=== PATIENT | male | born 1995 | race Caucasian/White ===

== ENCOUNTER 2016-12-24 13:41 | Inpatient (IN) | payer OTHER ==
[~2016-12-24] VITALS: Ht 182.9 cm; Wt 93.6 kg
[2016-12-24] MEDS ORDERED: HYDROmorphone INJ 1 MG/ML SYR IV STA (14:57)
[2016-12-24] MEDS ORDERED: PENI-82 PO (14:57)
[2016-12-24] MEDS ORDERED: KETOROLAC TROMETHAMINE 30 MG/ML VIAL IV STA (14:57)
[2016-12-24] MEDS ORDERED: AMPICILLIN/SULBACTAM SOD INJ 3,000 MG in SODIUM CHLORIDE 0.9% 100ML 100 ML IV STA (14:57)
[2016-12-24] MEDS ORDERED: HYDR-5688 PO (14:57)
[2016-12-24] MEDS ORDERED: METR-163 PO (14:57)
[2016-12-24] MEDS ORDERED: MTR600X PO (14:57)
[2016-12-24] MEDS ORDERED: OPTIRAY 320 IV PRN (15:15)
--- NOTE | 2016-12-24 15:22 | EMERGENCY ROOM VISIT NOTE ---
History Report prepared by Martínez: Asmita Caruso Under the Supervision of: Dr. Edvin Maurice M.D. First contact with patient: 14:52 Chief Complaint: FACIAL PAIN/INJURY Stated Complaint: MASS ON R SIDE OF FACE,INFECTION,SWELLING,FEVER History of Present Illness The patient is a 21 year old male who presents to the Emergency Room with complaints of a worsening right lower jaw infection for the past 2 days. The patient saw a dentist, Dr. Bauman, yesterday and had 2 teeth pulled. He was prescribed Flagyl, Penicillin, and Percocet. He is also taking ibuprofen. He states that today he woke up with worsening swelling of his jaw into his neck. He reports pain that radiates from his jaw into his neck. The patient rates his pain as a 5/10 in severity. Source of History: patient Onset: 2 days ago Position: jaw Symptom Intensity: 5/10 Quality: other (radiating) Timing: worsening Modifying Factors (Relieving): ibuprofen, narcotics Associated Symptoms: + neck pain Review of Systems See HPI for pertinent positives & negatives. A total of 10 systems reviewed and were otherwise negative. Past Medical & Surgical Medical Problems: (1) No significant past medical history Surgical Problems: (1) No significant past surgical history Family History Diabetes mellitus Heart disease Hypertension Social History Smoking Status: Never Smoker Smokeless Tobacco Use: No Alcohol Use: occasionally Marital Status: single Housing Status: lives with roommate Occupation Status: [employer] Current/Historical Medications Scheduled Metronidazole (Flagyl), 500 MG PO Q6 Penicillin V Potassium (Veetids), 1,000 MG PO Q6 Scheduled PRN Hydrocodone/Acetaminophen 5MG/325MG ([place] 5MG/325MG), 1 TABLET PO Q6 PRN for Pain Ibuprofen (Ibuprofen), 600 MG PO Q6 PRN for Pain Allergies Coded Allergies: Cefazolin (Verified Allergy, Unknown, unk, 01/26/16) Physical Exam Vital Signs Date Time Temp Pulse Resp B/P Pulse Ox O2 Delivery O2 Flow Rate FiO2 12/24/16 16:17 75 18 141/72 98 Room Air 12/24/16 15:33 79 12/24/16 13:56 37.0 81 18 151/91 97 Room Air Physical Exam GENERAL: Patient is a healthy-appearing well-nourished 21 year old male. HEAD: Normocephalic atraumatic EYES: Ocular movements intact pupils equal and react to light OROPHARYNX mucous membranes are moist no exudates present no erythema or edema present. The right angle of the jaw is grossly swollen, able to swallow his own saliva, 3 back right molars are tender, no evidence of abscess. NECK: Supple no nuchal rigidity, no evidence of Paolo's angina. CHEST: Good equal expansion LUNGS: Clear and equal to auscultation CARDIAC: Normal S1 and S2 ABDOMEN: Soft nontender no guarding BACK: No CVA tenderness EXTREMITIES: No pain upon palpation normal muscle strength in all groups no clubbing cyanosis or edema NEURO: Patient is following commands is answering questions appropriately. Alert and oriented x3 Cranial Nerves 2-12 grossly intact Medical Decision & Procedures ER Provider Diagnostic Interpretation: Radiology results as stated below per my review and radiologist interpretation: CT SCAN OF THE FACIAL BONES WITH IV CONTRAST CLINICAL HISTORY: Facial swelling. COMPARISON STUDY: No priors. TECHNIQUE: High-resolution CT scan of the facial bones is performed following the IV administration of 116 cc of Optiray 320. Images are reviewed in the axial, sagittal, and coronal planes. IV contrast was administered without complication. CT DOSE: 710.79 mGy.cm FINDINGS: The skeletal structures are well mineralized. There is no evidence of facial bone fracture. The bony orbits are intact and the orbital contents are within normal limits. The zygomatic arches, nasal bones, and pterygoid plates are preserved. The maxilla and mandible are intact. There are no layering blood products within the paranasal sinuses. There is subtotal opacification of the sphenoid sinuses. Trace mucosal thickening is noted in the maxillary antra. The remaining paranasal sinuses and mastoid air cells are clear. The visualized calvarium and upper cervical spine are maintained. There is a 1.4 cm lobulated fat density lesion at the skull base and the posterior fossa on the left. This is seen on axial image #426. Partially imaged brain parenchyma is otherwise within normal limits. There is a large periapical lucency involving a right mandibular premolar. There is associated cortical breakthrough with significant overlying inflammatory stranding of the superficial and deep soft tissues of the right face. This is consistent with cellulitis. There is no definite organized fluid collection seen to indicate abscess. A large periapical lucency is also identified involving the left most posterior mandibular molar. No maxillary periapical lucencies are identified. Prominent right cervical lymph nodes are likely on a reactive basis. IMPRESSION: 1. There is no evidence of facial bone fracture. 2. There is a large periapical lucency with associated cortical breakthrough identified involving a right mandibular premolar. There is induration of the overlying superficial and deep soft tissues consistent with cellulitis. No abscess is clearly identified. 3. An additional large periapical lucency is seen involving the left most posterior mandibular molar. Follow-up with dentistry is recommended. 4. There is a 1.4 cm lesion in the left posterior fossa which contains macroscopic fat. This could represent a dermoid cyst or a lipoma. Nonemergent follow-up with neurology is recommended. 5. Sphenoid sinus disease as above. Electronically signed by: Raffaele Paige M.D. 12/24/2016 3:58 PM Dictated Date/Time: 12/24/2016 3:48 PM Laboratory Results 12/24/16 15:15 Red Blood Count 5.06, Mean Corpuscular Volume 83.4, Mean Corpuscular Hemoglobin 29.8, Mean Corpuscular Hemoglobin Concent 35.8, Mean Platelet Volume 9.6, Neutrophils (%) (Auto) 74.5, Lymphocytes (%) (Auto) 12.3, Monocytes (%) (Auto) 11.8, Eosinophils (%) (Auto) 0.8, Basophils (%) (Auto) 0.3, Neutrophils # (Auto ) 5.38, Lymphocytes # (Auto) 0.89, Monocytes # (Auto) 0.85, Eosinophils # (Auto ) 0.06, Basophils # (Auto) 0.02 12/24/16 15:15 Test 12/24/16 15:15 12/24/16 15:24 White Blood Count 7.22 K/uL (4.8-10.8) Red Blood Count 5.06 M/uL (4.7-6.1) Hemoglobin 15.1 g/dL (14.0-18.0) Hematocrit 42.2 % (42-52) Mean Corpuscular Volume 83.4 fL (80-100) Mean Corpuscular Hemoglobin 29.8 pg (25-34) Mean Corpuscular Hemoglobin Concent 35.8 g/dl (32-36) Platelet Count 175 K/uL (130-400) Mean Platelet Volume 9.6 fL (7.4-10.4) Neutrophils (%) (Auto) 74.5 % Lymphocytes (%) (Auto) 12.3 % Monocytes (%) (Auto) 11.8 % Eosinophils (%) (Auto) 0.8 % Basophils (%) (Auto) 0.3 % Neutrophils # (Auto) 5.38 K/uL (1.4-6.5) Lymphocytes # (Auto) 0.89 K/uL (1.2-3.4) Monocytes # (Auto) 0.85 K/uL (0.11-0.59) Eosinophils # (Auto) 0.06 K/uL (0-0.5) Basophils # (Auto) 0.02 K/uL (0-0.2) RDW Standard Deviation 38.1 fL (36.4-46.3) RDW Coefficient of Variation 12.6 % (11.5-14.5) Immature Granulocyte % (Auto) 0.3 % Immature Granulocyte # (Auto) 0.02 K/uL (0.00-0.02) Est Creatinine Clear Calc Drug Dose 126.2 ml/min Estimated GFR () 110.6 Estimated GFR (Non- 95.5 BUN/Creatinine Ratio 10.0 (10-20) Calcium Level 9.6 mg/dl (8.5-10.1) Total Bilirubin 0.5 mg/dl (0.2-1) Direct Bilirubin 0.2 mg/dl (0-0.2) Aspartate Amino Transf (AST/SGOT) 15 U/L (15-37) Alanine Aminotransferase (ALT/SGPT) 34 U/L (12-78) Alkaline Phosphatase 69 U/L (45-117) Total Protein 8.3 gm/dl (6.4-8.2) Albumin 4.1 gm/dl (3.4-5.0) Lipase 137 U/L (73-393) Bedside Hemoglobin 14.6 g/dl (14.0-18.0) Bedside Hematocrit 43 % (42-52) Bedside Sodium 139 mEq/L (135-144) Bedside Potassium 4.2 mEq/L (3.3-5.0) Bedside Chloride 100 mEq/L (101-112) Bedside Total CO2 25 mEq/l (24-31) Anion Gap 19.0 mmol/L (16-25) Bedside Blood Urea Nitrogen 11 mg/dl (7-18) Bedside Creatinine 1.0 mg/dl (0.6-1.3) Bedside Glucose (other) 86 mg/dl (70-99) Bedside Ionized Calcium (Tato) 1.22 mmol/l (1.12-1.32) Labs reviewed by ED physician. Medications Administered Medications (Trade) Dose Ordered Sig/Tasha Route Start Time Stop Time Status Last Admin Dose Admin Ketorolac Tromethamine (Toradol Inj) 30 mg NOW STAT IV 12/24/16 14:57 12/24/16 15:00 DC 12/24/16 15:29 30 MG Hydromorphone HCl 1 mg 1 mg NOW STAT IV 12/24/16 14:57 12/24/16 15:00 DC 12/24/16 15:28 1 MG Ampicillin Sodium/ Sulbactam Sodium/ Sodium Chloride (Unasyn Inj/Nss 100ml) 108 ml @ 200 mls/hr NOW STAT IV 12/24/16 14:57 12/24/16 15:29 DC 12/24/16 15:27 200 MLS/HR Metronidazole (Flagyl / Nss) 500 mg NOW STAT IV 12/24/16 16:21 12/24/16 16:22 DC 12/24/16 16:54 500 MG Dexamethasone Sodium Phosphate (Decadron Inj) 10 mg NOW ONCE IV 12/24/16 16:45 12/24/16 16:54 DC 12/24/16 17:01 10 MG ED Course 1452: Past medical records reviewed. The patient was evaluated in room B12B. A complete history and physical examination was performed. 1457: Ampicillin Sodium/Sulbactam Sodium 3000 mg/Sodium Chloride 108 ml @ 200 mls/hr IV, Dilaudid 1 mg IV, Toradol 30 mg IV 1611: At this time I discussed the treatment plan with the patient's dentist, Dr. Bauman. Her phone number is [phone]. 1614: I reassessed the patient at this time. He is feeling better and resting comfortably. I discussed the results and treatment plan with the patient. I answered all pertaining questions that he had. He expressed understanding and verbalized agreement. At this time I offered to call his parents, but he declined. 1621: Flagyl 500 mg IV 1632: I spoke with Dr. Bunch. We discussed the patients results and treatment plan. [facility]. Medical Decision Differential diagnosis: Etiologies such as cellulitis, abscess, MRSA infection, DVT, necrotizing fasciitis, dermatitis, drug eruption, as well as others were entertained. This is a 21-year-old male who presents emergency complaining of facial swelling. The patient recently had an abscess drained in his mouth by his dentist. He is placed on penicillin and Flagyl however his face is continue to swell. He Cozen the large amount of swelling, the patient was sent for a CAT scan of the face. This did not show any evidence of a drainable abscess. Because of the large amount of swelling I did discuss the case with both a dentist as well as the hospitalist service who agreed to admit the patient. Patient was given Toradol in the emergency department along with Unasyn and Flagyl. Repeat examination revealed improvement patient's symptoms. Patient was in agreement with the treatment plan. I offered to call this patient's parents however the patient declined. Consults Time Called: 1609 Consulting Physician: Dr. Bauman Returned Call: 1611 At this time I discussed the treatment plan with the patient's dentist, Dr. Bauman. Additional Consults: Time Called: 1629 Consulted Physician: Dr. Bunch Returned Call: 1632 Additional Comments: I spoke with Dr. Bunch. We discussed the patients results and treatment plan. The patient will be evaluated by the [facility] for further management. Impression Primary Impression: Facial cellulitis Scribe Attestation The scribe's documentation has been prepared under my direction and personally reviewed by me in its entirety. I confirm that the note above accurately reflects all work, treatment, procedures, and medical decision making performed by me. Departure Information Dispostion Being Evaluated By Hospitalist Referrals No Doctor, Assigned (PCP) Patient Instructions My [facility]
[2016-12-24 15:35] LABS: BASO % 0.3 %; BASO ABS # 0.02 K/uL (0-0.2); COMPLETE YES; EOS % 0.8 %; HEMATOCRIT 42.2 % (42-52); IG% 0.3 %; LYMPH % 12.3 %; LYMPH ABS # 0.89 K/uL (1.2-3.4); MEAN CELL VOLUME 83.4 fL (80-100); MEAN CORPUSCULAR HEMOGLOBIN 29.8 pg (25-34); MEAN CORPUSCULAR HGB CONC 35.8 g/dl (32-36); MEAN PLATELET VOLUME 9.6 fL (7.4-10.4); MONO % 11.8 %; NEUT % 74.5 %; PLATELET COUNT 175 K/uL (130-400); RED BLOOD COUNT 5.06 M/uL (4.7-6.1); WHITE BLOOD COUNT 7.22 K/uL (4.8-10.8)
[2016-12-24 15:40] LABS: ISTAT HEMOGLOBIN 14.6 g/dl (14.0-18.0); ISTAT IONIZED CALCIUM 1.22 mmol/l (1.12-1.32)
[2016-12-24 15:52] LABS: CALCIUM 9.6 mg/dl (8.5-10.1); CREATININE 1.1 mg/dl (0.60-1.40); POTASSIUM 4.3 mmol/L (3.5-5.1)
--- NOTE | 2016-12-24 16:00 | DIAGNOSTIC IMAGING REPORT ---
CT SCAN OF THE FACIAL BONES WITH IV CONTRAST CLINICAL HISTORY: Facial swelling. COMPARISON STUDY: No priors. TECHNIQUE: High-resolution CT scan of the facial bones is performed following the IV administration of 116 cc of Optiray 320. Images are reviewed in the axial, sagittal, and coronal planes. IV contrast was administered without complication. CT DOSE: 710.79 mGy.cm FINDINGS: The skeletal structures are well mineralized. There is no evidence of facial bone fracture. The bony orbits are intact and the orbital contents are within normal limits. The zygomatic arches, nasal bones, and pterygoid plates are preserved. The maxilla and mandible are intact. There are no layering blood products within the paranasal sinuses. There is subtotal opacification of the sphenoid sinuses. Trace mucosal thickening is noted in the maxillary antra. The remaining paranasal sinuses and mastoid air cells are clear. The visualized calvarium and upper cervical spine are maintained. There is a 1.4 cm lobulated fat density lesion at the skull base and the posterior fossa on the left. This is seen on axial image #426. Partially imaged brain parenchyma is otherwise within normal limits. There is a large periapical lucency involving a right mandibular premolar. There is associated cortical breakthrough with significant overlying inflammatory stranding of the superficial and deep soft tissues of the right face. This is consistent with cellulitis. There is no definite organized fluid collection seen to indicate abscess. A large periapical lucency is also identified involving the left most posterior mandibular molar. No maxillary periapical lucencies are identified. Prominent right cervical lymph nodes are likely on a reactive basis. IMPRESSION: 1. There is no evidence of facial bone fracture. 2. There is a large periapical lucency with associated cortical breakthrough identified involving a right mandibular premolar. There is induration of the overlying superficial and deep soft tissues consistent with cellulitis. No abscess is clearly identified. 3. An additional large periapical lucency is seen involving the left most posterior mandibular molar. Follow-up with dentistry is recommended. 4. There is a 1.4 cm lesion in the left posterior fossa which contains macroscopic fat. This could represent a dermoid cyst or a lipoma. Nonemergent follow-up with neurology is recommended. 5. Sphenoid sinus disease as above. Electronically signed by: Raffaele Paige M.D. 12/24/2016 3:58 PM Dictated Date/Time: 12/24/2016 3:48 PM
[2016-12-24] MEDS ORDERED: METRONIDAZOLE 500MG / 100ML NSS IV STA (16:21)
[2016-12-24] MEDS ORDERED: PERCOCET HOME PACK PO ONE (16:30)
[2016-12-24] MEDS ORDERED: [UNRECOGNIZED DRUG - OTHER] MT PRN (16:45)
[2016-12-24] MEDS ORDERED: DEXAMETHASONE SOD INJ 10 MG/ML VIAL IV ONE (16:45)
[2016-12-24] MEDS ORDERED: KETOROLAC TROMETHAMINE 30 MG/ML VIAL IV PRN (16:45)
[2016-12-24] MEDS ORDERED: ONDANSETRON INJ 2 MG/ML 2 ML VIAL IV PRN (16:45)
[2016-12-24 19:44] VITALS: BP 142/74; PULSE 80; TEMP 37; Ht 182.9 cm; Wt 93.6 kg
[2016-12-24] MEDS ORDERED: IV FLUIDS COMPLETED PRN (20:00)
[2016-12-24] MEDS: AMPICILLIN/SULBACTAM SOD INJ 3,000 MG in SODIUM CHLORIDE 0.9% 100ML 100 ML IV SCH (21:16)
[2016-12-24] MEDS: DEXAMETHASONE INJ 4 MG in SYRINGE 0 ML IV SCH (23:21)
--- NOTE | 2016-12-24 23:48 | History and Physical ---
History & Physical Date & Time of Service: Dec 24, 2016 at 23:30 Chief Complaint: Facial Cellulitis Primary Care Physician: No Doctor, Assigned History of Present Illness Source: patient A 21 year old male comes with worsening right lower jaw infection for the past 2 days. The patient saw a dentist, Dr. Bauman, yesterday and had 2 teeth pulled. He was prescribed po Flagyl, Penicillin, and Percocet. He was also taking ibuprofen without relieve. He complains of swelling right cheek. The patient rates his pain as a 5/10 in severity in his right cheek. 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 Allergies Coded Allergies: Cefazolin (Verified Allergy, Unknown, unk, 01/26/16) Home Medications Scheduled Metronidazole (Flagyl), 500 MG PO Q6 Penicillin V Potassium (Veetids), 1,000 MG PO Q6 Scheduled PRN Hydrocodone/Acetaminophen 5MG/325MG ([place] 5MG/325MG), 1 TABLET PO Q6 PRN for Pain Ibuprofen (Ibuprofen), 600 MG PO Q6 PRN for Pain Review of Systems Constitutional: No fever ENT: + dental problems, + problem reported (right facial swelling), No hearing loss Respiratory: No cough Cardiovascular: No chest pain Abdomen: No nausea Musculoskeletal: No joint pain Neurologic: No paralysis Endocrine: No fatigue Integumentary: No rash Physical Exam Vital Signs Date Time Temp Pulse Resp B/P Pulse Ox O2 Delivery O2 Flow Rate FiO2 12/24/16 19:44 37.0 80 18 142/74 Room Air 12/24/16 19:05 82 18 158/97 98 Room Air 12/24/16 16:17 75 18 141/72 98 Room Air 12/24/16 15:33 79 12/24/16 13:56 37.0 81 18 151/91 97 Room Air General Appearance: WD/WN, no apparent distress Head: normocephalic Eyes: normal inspection ENT: hearing grossly normal, + pertinent finding (right mouth swelling) Neck: supple Respiratory/Chest: chest non-tender, normal breath sounds Cardiovascular: no edema, no gallop, no murmur Abdomen/GI: normal bowel sounds, soft Genitourinary - Male: normal male genitalia Back: normal inspection Extremities/Musculoskelatal: normal inspection Neurologic/Psych: alert Skin: normal color Diagnostics Laboratory Results Results Past 24 Hours Test 12/24/16 15:15 12/24/16 15:24 Range/Units White Blood Count 7.22 4.8-10.8 K/uL Red Blood Count 5.06 4.7-6.1 M/uL Hemoglobin 15.1 14.0-18.0 g/dL Hematocrit 42.2 42-52 % Mean Corpuscular Volume 83.4 80-100 fL Mean Corpuscular Hemoglobin 29.8 25-34 pg Mean Corpuscular Hemoglobin Concent 35.8 32-36 g/dl Platelet Count 175 130-400 K/uL Mean Platelet Volume 9.6 7.4-10.4 fL Neutrophils (%) (Auto) 74.5 % Lymphocytes (%) (Auto) 12.3 % Monocytes (%) (Auto) 11.8 % Eosinophils (%) (Auto) 0.8 % Basophils (%) (Auto) 0.3 % Neutrophils # (Auto) 5.38 1.4-6.5 K/uL Lymphocytes # (Auto) 0.89 1.2-3.4 K/uL Monocytes # (Auto) 0.85 0.11-0.59 K/uL Eosinophils # (Auto) 0.06 0-0.5 K/uL Basophils # (Auto) 0.02 0-0.2 K/uL RDW Standard Deviation 38.1 36.4-46.3 fL RDW Coefficient of Variation 12.6 11.5-14.5 % Immature Granulocyte % (Auto) 0.3 % Immature Granulocyte # (Auto) 0.02 0.00-0.02 K/uL Sodium Level 140 136-145 mmol/L Potassium Level 4.3 3.5-5.1 mmol/L Chloride Level 104 98-107 mmol/L Carbon Dioxide Level 29 21-32 mmol/L Anion Gap 7.0 19.0 16-25 mmol/L Blood Urea Nitrogen 11 7-18 mg/dl Creatinine 1.10 0.60-1.40 mg/dl Est Creatinine Clear Calc Drug Dose 126.2 ml/min Estimated GFR () 110.6 Estimated GFR (Non- 95.5 BUN/Creatinine Ratio 10.0 10-20 Random Glucose 84 70-99 mg/dl Calcium Level 9.6 8.5-10.1 mg/dl Total Bilirubin 0.5 0.2-1 mg/dl Direct Bilirubin 0.2 0-0.2 mg/dl Aspartate Amino Transf (AST/SGOT) 15 15-37 U/L Alanine Aminotransferase (ALT/SGPT) 34 12-78 U/L Alkaline Phosphatase 69 45-117 U/L Total Protein 8.3 6.4-8.2 gm/dl Albumin 4.1 3.4-5.0 gm/dl Lipase 137 73-393 U/L Bedside Hemoglobin 14.6 14.0-18.0 g/dl Bedside Hematocrit 43 42-52 % Bedside Sodium 139 135-144 mEq/L Bedside Potassium 4.2 3.3-5.0 mEq/L Bedside Chloride 100 101-112 mEq/L Bedside Total CO2 25 24-31 mEq/l Bedside Blood Urea Nitrogen 11 7-18 mg/dl Bedside Creatinine 1.0 0.6-1.3 mg/dl Bedside Glucose (other) 86 70-99 mg/dl Bedside Ionized Calcium (Tato) 1.22 1.12-1.32 mmol/l Diagnostic Radiology CT facial: cellulitis, no abscess Impression Assessment and Plan A 21 year old male who presents to the Emergency Room with complaints of a worsening right lower jaw infection for the past 2 days. Right facial cellulitis after dental procedure, no abscess start IV unasyn start IV dexamethasone Cont IV analgesia Peroxyl prn DVT/GI proph FULL code Level of Care Med/Surg Advanced Directives Existing Living Will: No Existing Power of Atg Architect: No Resuscitation Status FULL RESUSCITATION VTE Prophylaxis VTE Risk Assessment Done? Y/N: Yes Risk Level: Low Note time spent 50 min
[2016-12-25 00:12] VITALS: BP 144/83; PULSE 71; TEMP 36.7; O2SAT 100
[2016-12-25 00:13] LABS: MANUAL MICROSCOPIC REQUIRED? NO; URINE APPEARANCE CLEAR (CLEAR); URINE BILIRUBIN NEG (NEG); URINE COLOR YELLOW; URINE NITRITE NEG (NEG); URINE PH 6.5 (4.5-7.5); URINE SPECIFIC GRAVITY <= 1.005 (1.000-1.030); UROBILINOGEN NEG (NEG)
[2016-12-25 00:15] LABS: REVIEW REQ? NO
[2016-12-25] MEDS: AMPICILLIN/SULBACTAM SOD INJ 3,000 MG in SODIUM CHLORIDE 0.9% 100ML 100 ML IV SCH ×4 (02:54→20:47)
[2016-12-25] MEDS: DEXAMETHASONE INJ 4 MG in SYRINGE 0 ML IV SCH ×4 (05:01→22:49)
[2016-12-25 07:38] LABS: COMPLETE YES; IG% 0.5 %; LYMPH % 6.2 %; LYMPH ABS # 0.46 K/uL (1.2-3.4); MEAN CELL VOLUME 81.9 fL (80-100); MEAN CORPUSCULAR HEMOGLOBIN 29.6 pg (25-34); MEAN CORPUSCULAR HGB CONC 36.2 g/dl (32-36); MONO % 1.7 %; NEUT % 91.6 %; PLATELET COUNT 218 K/uL (130-400); RED BLOOD COUNT 4.76 M/uL (4.7-6.1); WHITE BLOOD COUNT 7.43 K/uL (4.8-10.8)
[2016-12-25 08:04] LABS: BUN/CREATININE RATIO 11.5 (10-20); CALCIUM 9.3 mg/dl (8.5-10.1); CREATININE 0.96 mg/dl (0.60-1.40); POTASSIUM 4.1 mmol/L (3.5-5.1)
[2016-12-25 08:17] VITALS: BP 136/82; PULSE 77; TEMP 36.8; O2SAT 99
--- NOTE | 2016-12-25 13:15 | Discharge Instructions ---
Discharge Instructions Admission Reason for Admission: Facial Cellulitis Discharge Discharge Diagnosis / Problem: Facial Cellulitis Discharge Goals Goal(s): Improve disease control Activity Recommendations Activity Limitations: resume your previous activity . Instructions / Follow-Up Instructions / Follow-Up Follow up with family physician in one week Current Hospital Diet Patient's current hospital diet: Regular Diet Discharge Diet Recommended Diet: Regular Diet Pending Studies Studies pending at discharge: no Medical Emergencies . Who to Call and When: Medical Emergencies: If at any time you feel your situation is an emergency, please call 911 immediately. . Non-Emergent Contact Non-Emergency issues call your: Primary Care Provider . . "Provider Documentation" section prepared by Lelo Stack. VTE Core Measure Inpt VTE Proph given/why not?: Treatment not indicated
--- NOTE | 2016-12-25 15:03 | Family Medicine Progress Note ---
Progress Note Date of Service Dec 25, 2016. Subjective swelling improving able to open mouth better would like to eat more solid food Objective Physical Exam General Appearance: no apparent distress ENT: + pertinent finding (right facial swelling much improved) Respiratory/Chest: no respiratory distress Cardiovascular: regular rate, rhythm Neurologic/Psychiatric: alert, oriented x 3 Skin: warm/dry Assessment and Plan A 21 year old male who presents to the Emergency Room with complaints of a worsening right lower jaw infection for the past 2 days. Right facial cellulitis after dental procedure, no abscess - much improved today continue IV unasyn continue IV dexamethasone Cont IV analgesia Peroxyl prn DVT/GI proph FULL code anticipate d/c home in am on oral abx
[2016-12-25 16:30] VITALS: BP 145/74; PULSE 86; TEMP 36.6; O2SAT 98
[2016-12-26 00:01] VITALS: BP 141/73; PULSE 75; TEMP 36.7; O2SAT 99
[2016-12-26] MEDS: AMPICILLIN/SULBACTAM SOD INJ 3,000 MG in SODIUM CHLORIDE 0.9% 100ML 100 ML IV SCH ×2 (02:49→08:33)
[2016-12-26] MEDS: DEXAMETHASONE INJ 4 MG in SYRINGE 0 ML IV SCH (03:39)
--- NOTE | 2016-12-26 07:12 | HISTORY & PHYSICAL EXAMINATION ---
DATE OF ADMISSION: 12/24/2016 CHIEF COMPLAINT: Facial pain, swelling. 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 The patient saw a dentist few days ago, Dr. Bauman who prescribed him Flagyl, penicillin, Percocet. He was also taking ibuprofen. Today, he woke up with swelling of his jaw and he came to Emergency Room for further evaluation. He has pain 5/10 in severity. REVIEW OF SYSTEMS: Negative except as above. Ten out of 14 systems were reviewed. PAST MEDICAL HISTORY: Root canal. FAMILY HISTORY: Diabetes, heart disease, hypertension. SOCIAL HISTORY: Does not smoke. Drinks about 4-5 times a week, few shots. Single, lives with a roommate. [employer] student. Does not use drugs. CURRENT MEDICATIONS: Flagyl 500 mg t.i.d.; Percocet 1 tablet p.o. p.r.n.; penicillin, unknown dose. ALLERGIES: CEFAZOLIN. PHYSICAL EXAMINATION: VITAL SIGNS: Temperature 37.0, pulse 81, respirations 18, blood pressure 151/91, pulse ox 97% on room air. GENERAL: In mild distress because of pain. HEENT: Normocephalic, atraumatic. PERRLA, EOMI. Mouth: Mucous membranes are moist, no exudates or erythema, the right angle of the jaw is grossly swollen, able to swallow his own saliva, 3 back right molars are tender. No evidence of abscess. NECK: No JVD. Trachea midline. Thyroid is not enlarged. No Paolo angina CHEST AND LUNGS: Clear to auscultation bilateral. No wheezes, no rhonchi. HEART: S1, S2. RRR. ABDOMEN: Soft, nontender, nondistended. Bowel sounds present bilateral. BACK: No CVA tenderness. EXTREMITIES: No clubbing, cyanosis, edema. NEUROLOGICAL: Alert, oriented x3. Motor sensory normal. Deep tendon reflexes 2+ bilateral. DIAGNOSTIC INTERPRETATION: He had a face CT scan done that showed no evidence of facial bone fracture, large periapical lucency with associated cortical breakthrough identified involving a right mandibular premolar. There is induration of the overlying superficial and deep soft tissue consistent with cellulitis, no abscess. A large periapical lucency seen involving the left moist posterior mandibular molar. There is a 1.4 cm lesion in the left posterior fossa which contains microscopic fat that could represent a dermoid cyst or lipoma, sphenoid sinus disease as above with trace mucosal thickening. LABORATORY DATA: White count of 7.2, hemoglobin of 14.6, platelets 175. BMP is normal. ASSESSMENT AND PLAN: This is a 21-year-old male who comes with worsening right lower jaw pain and swelling after dentist appointment yesterday. 1. Facial cellulitis secondary to dental work with no abscess. Start patient on IV Unasyn and monitor response. Clear diet. Also start IV dexamethasone to prevent further swelling. Peroxyl oral cleanser for mouth irritation. Toradol 30 mg IV q. 6 hours p.r.n. pain, fever and swelling. 2. Deep venous thrombosis prophylaxis is not required. He is a full code. TIME SPENT DOING THIS ADMISSION: 40 minutes. NUVIA
[2016-12-26 07:38] VITALS: BP 139/74; PULSE 81; TEMP 36.5; O2SAT 99
[2016-12-26 08:00] VITALS: O2SAT 99
--- NOTE | 2016-12-26 09:47 | Family Medicine Progress Note ---
Progress Note Date of Service Dec 26, 2016. Medications Current Inpatient Medications Medications (Trade) Dose Ordered Sig/Tasha Route Start Time Stop Time Status Last Admin Dose Admin Ioversol (Optiray 320) 125 ml UD PRN IV 12/24/16 15:15 12/28/16 15:14 Hydrogen Peroxide (Peroxyl Oral Cleanser) 5 ml Q1H PRN MT 12/24/16 16:45 01/23/17 16:44 Ondansetron HCl (Zofran Inj) 4 mg Q6H PRN IV 12/24/16 16:45 01/23/17 16:44 Ketorolac Tromethamine 30 mg 30 mg Q6H PRN IV 12/24/16 16:45 12/29/16 16:44 12/25/16 18:30 30 MG Ampicillin Sodium/ Sulbactam Sodium 3000 mg/Sodium Chloride 108 ml @ 200 mls/hr Q6H IV 12/24/16 21:00 01/03/17 14:59 12/26/16 08:33 200 MLS/HR Dexamethasone Sodium Phosphate/ Syringe (Decadron Inj/ Syringe) 1 ml @ 1 mls/min Q6H IV 12/24/16 23:00 01/23/17 16:44 12/26/16 03:39 1 MLS/MIN Miscellaneous (Iv Fluids Completed) 1 ea PRN PRN N/A 12/24/16 20:00 12/24/17 19:59 Objective Vital Signs Date Time Temp Pulse Resp B/P Pulse Ox O2 Delivery O2 Flow Rate FiO2 12/26/16 08:00 99 Room Air 12/26/16 07:38 36.5 81 22 139/74 99 Room Air 12/26/16 00:01 Room Air 12/26/16 00:01 36.7 75 20 141/73 99 Room Air 12/25/16 20:00 Room Air 12/25/16 16:30 36.6 86 18 145/74 98 Room Air 12/25/16 15:45 Room Air Assessment and Plan DRAFT Buccal cellulitis secondary to dental surgery - Continue Unasyn while in hospital. Swithc steroids to oral
[2016-12-26 12:25] VITALS: BP 139/74; PULSE 81; TEMP 36.5; O2SAT 99
[2016-12-26] MEDS ORDERED: AMOX875T PO (14:28)
[2016-12-26] MEDS ORDERED: PRD10 PO (14:32)
[2016-12-26] MEDS ORDERED: PRED10TA PO (14:39)
--- NOTE | 2016-12-26 23:57 | Discharge Summary ---
Discharge Summary Admission Date: Dec 24, 2016 at 16:59 Discharge Date: Dec 26, 2016 Discharge Disposition: Home Principal Diagnosis: Facial cellultitis Problems/Secondary Diagnoses: Incidental left posterior fossa mass (Bear Moreland MD) Procedures: face CT: IMPRESSION: 1. There is no evidence of facial bone fracture. 2. There is a large periapical lucency with associated cortical breakthrough identified involving a right mandibular premolar. There is induration of the overlying superficial and deep soft tissues consistent with cellulitis. No abscess is clearly identified. 3. An additional large periapical lucency is seen involving the left most posterior mandibular molar. Follow-up with dentistry is recommended. 4. There is a 1.4 cm lesion in the left posterior fossa which contains macroscopic fat. This could represent a dermoid cyst or a lipoma. Nonemergent follow-up with neurology is recommended. 5. Sphenoid sinus disease as above. (Bear Paulino MD) Medication Reconciliation New Medications: Amoxicillin & Pot Clavulanate (Augmentin 875-125 mg) 1 Tab Tab 1 TAB PO BID, #12 TAB Prednisone (Prednisone) 10 Mg Tab 60 MG PO DAILY, #18 TAB 60 mg for 1 day then 40 mg for 2 days then 20 mg for 2 days then stop Continued Medications: Hydrocodone/Acetaminophen 5MG/325MG ([place] 5MG/325MG) Tab 1 TABLET PO Q6 PRN for Pain, TAB PRN PAIN Ibuprofen (Ibuprofen) 600 Mg Tab 600 MG PO Q6 PRN for Pain Discontinued Medications: Metronidazole (Flagyl) 500 Mg Tab 500 MG PO Q6, #20 TAB Penicillin V Potassium (Veetids) 500 Mg Tab 1000 MG PO Q6 Discharge Exam Mr Alvarez is feeling much better today. He notes his swelling and erythema are much reduced since admission. No breathing issues. Tolerating food well with minimal discomfort. Numbness on lower lip continues. No fevers or chills 10 systems review otherwise negative Physical Exam: General Appearance: WD/WN, no apparent distress ENT: + pertinent finding (no pharyngeal abscess seen, no facial erythema, mild swelling on right jaw, otherwise unremarkable) Neck: supple Respiratory/Chest: chest non-tender, lungs clear, normal breath sounds, no respiratory distress, no accessory muscle use Cardiovascular: regular rate, rhythm, no murmur Abdomen / GI: normal bowel sounds, non tender, soft Extremities: no calf tenderness, normal capillary refill, no pedal edema Neurologic/Psychiatric: alert, normal mood/affect, oriented x 3 Skin: normal color, warm/dry, no rash (Bear Moreland MD) Hospital Course 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 Facial CT - showed no collection, cellulitic changes only. He was treated with 2.5 days of Unasyn for cellulitis switched to Augmentin Q12H 875mg for total course of 10 days. Dexamethasone was given for the swelling and switched to a prednisone tapering dose as outpatient. He continues to have right mandibular nerve numbness and was advised to make an appointment with the dentist who performed his procedure for follow up within the next week regarding this. Incidental left posterior fossa fatty mass was picked on CT, he appears asymptomatic from this. He will be followed up by Reina Sierra PA-C from [facility] neurology regarding this and whether re-imaging is recommended (appointment 12/29 @11:00am). He is now medically stable for discharge home and afebrile since admission. Recommended follow up with sport's medicine for return to play since he is a [employer] rugby player. Total Time Spent: Less than 30 minutes This includes examination of the patient, discharge planning, medication reconciliation, and communication with other providers. (Bear Moreland MD) Resident Physician Supervision Note: I was present with PGY2 Dr. Bear Moreland during the discharge history and exam. I discussed the case with the resident and agree with the findings and plan as documented in this discharge summary. Any exceptions or clarifications are listed here: none. 21yo male with recent dental work who developed facial/buccal cellulitis following that dental work. He improved quickly with use of IV antibiotics and steroids. He will discharge to home on a course of augmentin and prednisone. He was advised to follow-up with his local dentist. Incidentally, on the facial CT, a posterior fossa mass was identified. He will be set up to see [facility] shortly after discharge. discharge exam: gen - nad mouth/oral cavity - no abscess, swelling, etc face - scant amount of facial swelling on right neck - scattered shotty lymphadenopathy heart - RRR, s1, s2 lungs - CTA b/l abd - soft ext - no edema Documented By: Bear Paulino MD (Bear Paulino MD) Discharge Instructions Please refer to the electronic Patient Visit Report (Discharge Instructions) for additional information. (Bear Moreland MD) Follow-Up Follow up with Dr Ball in the [facility] training room tomorrow. Follow up with dentist who performed his root canal within the next week (he will make this appointment) [facility] Neurology 12/29/16 @11:00am Reina Sierra PA-C (Bear Moreland MD) Additional Copies To Lyle Ball MD; Mery Ramirez MD Resident Tracking Resident Involvement: Resident Care Provided Care Provided: Adult Hospital Medicine (Bear Moreland MD) Resident Tracking Resident Involvement: Resident Care Provided Care Provided: Adult Hospital Medicine (Bear Moreland MD)
== END 2016-12-26 15:49 | disposition home or self-care (01) | DRG 863 ==
LOC: ENRESERVDT → ENRESERVTM → C.EDB 13:45 → C.MS4W 16:59
PROVIDERS: ADMIT Hospitalist; ATTEND Internal Medicine
DX: T81.4XXA Infection following a procedure, initial encounter (principal); L03.211 Cellulitis of face; Y83.8 Other surgical procedures as the cause of abnormal reaction of the patient, or of later complication, without mention of misadventure at the time of the procedure; R20.0 Anesthesia of skin; R93.8 Abnormal findings on diagnostic imaging of other specified body structures; Z98.890 Other specified postprocedural states

== ENCOUNTER → 2017-01-05 | Outpatient (CLI) | payer OTHER ==
[~2017-01-05] MED LIST: AMOX875T PO; GADAVIST IV PRN; HYDR-5688 PO; MTR600X PO; PRED10TA PO
--- NOTE | 2017-01-05 12:15 | DIAGNOSTIC IMAGING REPORT ---
MRI OF THE BRAIN WITHOUT AND WITH IV CONTRAST CLINICAL HISTORY: R90.[address] of brain compare to previous MRI about 4 years COMPARISON STUDY: No previous studies for comparison. TECHNIQUE: Utilizing a 1.5 Adriane magnet and dedicated coil, multiplanar, multiecho imaging of the brain was performed pre and postcontrast administration. IV administration of 12.5 mL of Gadavist contrast was uneventful. 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 There is no evidence for abnormal postcontrast enhancement. There may be slight extension to the region immediately adjacent to the medial aspect of the left internal auditory canal. 7th and 8th nerves appear unremarkable. There is no significant postcontrast enhancement. Signal characteristics of the remainder of the cerebellar as well as cerebral hemispheres appears unremarkable. Ventricular system is midline. Mastoid air cells are considered clear. Coronal FLAIR images show no abnormal foci of increased signal within the exception of the lipomatous structure previously described. IMPRESSION: 1. 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 This shows equivocal extension to the inner origin of the left internal auditory canal with no direct involvement of that structure. 3. Study is otherwise entirely normal. 4. Comparison to prior studies will be performed when those images are submitted for comparison Electronically signed by: Aidan Abbott M.D. 01/05/2017 12:13 PM Dictated Date/Time: 01/05/2017 12:07 PM
== END | disposition home or self-care (01) ==
LOC: C.MRI 10:46
PROVIDERS: ATTEND Psychiatry & Neurology Neurology
DX: R90.89 Other abnormal findings on diagnostic imaging of central nervous system (principal)